=== PATIENT | female | born 2000 | race African-American/Black ===

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

== ENCOUNTER 2019-01-03 11:56 | Emergency (ER) | payer OTHER, BC ==
[~2019-01-03] VITALS: Ht 162.6 cm; Wt 50.0 kg
[2019-01-03 11:59] VITALS: Ht 162.6 cm; Wt 50.0 kg
[2019-01-03 12:21] LABS: APPEARANCE CLOUDY (CLEAR); BILIRUBIN NEGATIVE (NEGATIVE); COLOR YELLOW (YELLOW); GLUCOSE NEGATIVE (NEGATIVE); KETONE NEGATIVE (NEGATIVE); NITRITE NEGATIVE (NEGATIVE); PROTEIN TRACE mg/dL (NEGATIVE); SPECIFIC GRAVITY 1.025 (1.005-1.020); UROBILINOGEN NORMAL (NORMAL)
[2019-01-03 12:23] LABS: AMORPHOUS SEDIMENT <1+ /lpf (NONE SEEN); BACTERIA MODERATE /hpf (NEGATIVE); RED CELLS - URINE 0-5 /hpf (0-5); WHITE CELLS - URINE 0-5 /hpf (NEGATIVE)
[2019-01-03 12:29] LABS: BASOPHILS 0.6 % (0-2); HEMATOCRIT 36.6 % (36.0-48.0); HEMOGLOBIN 11.8 g/dL (12-16); IMMATURE GRANULOCYTES 0.2 % (0-5); LYMPHOCYTES 37.2 % (15-50); MCH 27.6 pg (26.0-34.0); MCHC 32.2 g/dL (31.0-37.0); MCV 85.5 fL (80.0-100.0); MEAN PLATELET VOLUME 10.1 fL (7.4-10.4); MONOCYTES 9.9 % (2-11); NEUTROPHILS 48.1 % (40-80); RBC 4.28 10x6/uL (4.00-5.40); RDW 14.4 % (11.5-14.5); WBC 5.2 10x3/uL (4.8-10.8)
[2019-01-03 12:31] LABS: PLATELET COUNT 340 10x3/uL (130-400)
[2019-01-03 12:44] LABS: ALKALINE PHOSPHATASE 56 U/L (46-116); ALT (SGPT) 16 U/L (10-68); BILIRUBIN - TOTAL 0.58 mg/dL (0.2-1.3); CALC OSMOLALITY 276 mosm/kg (275-300); CALCIUM 8.9 mg/dL (8.5-10.1); CARBON DIOXIDE 27.3 mmol/L (21.0-32.0); CHLORIDE - SERUM 105 mmol/L (98-107); CREATININE - SERUM 0.7 mg/dL (0.6-1.3); GLUCOSE 85 mg/dL (74-106); POTASSIUM - SERUM 3.5 mmol/L (3.5-5.1); SODIUM 140 mmol/L (136-145); UREA NITROGEN 10 mg/dL (7-18); eGFR NON AFRICAN AMERICAN > 90 mL/min (90-120)
[2019-01-03 13:07] LABS: HCG - QUANTITATIVE (MATERNAL) 6929 mIU/mL
[2019-01-03 16:58] VITALS: BP 115/68
== END 2019-01-03 16:58 | disposition home or self-care (01) ==
LOC: D.ER 11:56
PROVIDERS: Emergency Medicine
DX: O20.9 Hemorrhage in early pregnancy, unspecified (principal); Z3A.01 Less than 8 weeks gestation of pregnancy

== ENCOUNTER → 2019-01-08 11:12 | Outpatient (CLI) | payer OTHER, BC ==
[2019-01-03 11:59] VITALS: BMI 18.9
== END | disposition home or self-care (01) ==
LOC: D.US 11:12
PROVIDERS: ATTEND Student in an Organized Health Care Education/Training Program
DX: O92.29 Other disorders of breast associated with pregnancy and the puerperium (principal); N63.12 Unspecified lump in the right breast, upper inner quadrant

== ENCOUNTER 2019-06-26 09:54 | Outpatient (CLI) | payer OTHER ==
[2019-01-03 11:59] VITALS: BMI 18.9
[2019-06-26 10:47] LABS: BILIRUBIN NEGATIVE (NEGATIVE); GLUCOSE NEGATIVE (NEGATIVE); KETONE NEGATIVE (NEGATIVE); NITRITE NEGATIVE (NEGATIVE); SPECIFIC GRAVITY 1.005 (1.005-1.020); UROBILINOGEN NORMAL (NORMAL)
[2019-06-26 10:50] LABS: EPITHELIAL CELLS 0-5 /hpf (0-5); RED CELLS - URINE NONE SEEN /hpf (0-5); WHITE CELLS - URINE 0-5 /hpf (NEGATIVE)
[2019-06-26 10:51] LABS: BACTERIA MODERATE /hpf (NEGATIVE)
[2019-06-26 10:54] LABS: UDS - AMPHET NEGATIVE QUAL (NEGATIVE); UDS - BARB NEGATIVE QUAL (NEGATIVE); UDS - BENZO NEGATIVE QUAL (NEGATIVE); UDS - COCAINE NEGATIVE QUAL (NEGATIVE); UDS - OPIATE NEGATIVE QUAL (NEGATIVE); UDS - PCP NEGATIVE QUAL (NEGATIVE); UDS - THC NEGATIVE QUAL (NEGATIVE)
== END 2019-06-26 20:05 | disposition left against medical advice (07) ==
LOC: D.LDO 09:54
PROVIDERS: ATTEND Student in an Organized Health Care Education/Training Program
DX: O36.0191 Maternal care for anti-D [Rh] antibodies, unspecified trimester, fetus 1 (principal)

== ENCOUNTER 2019-06-27 16:32 | Outpatient (CLI) | payer SELFPAY ==
[2019-01-03 11:59] VITALS: BMI 18.9
== END 2019-06-27 17:50 | disposition home or self-care (01) ==
LOC: D.LDO 16:32
PROVIDERS: ATTEND Student in an Organized Health Care Education/Training Program
DX: O26.899 Other specified pregnancy related conditions, unspecified trimester (principal); R10.30 Lower abdominal pain, unspecified

== ENCOUNTER 2019-07-23 18:35 | Outpatient (CLI) | payer SELFPAY ==
[2019-01-03 11:59] VITALS: BMI 18.9
[2019-07-23 19:32] LABS: BILIRUBIN NEGATIVE (NEGATIVE); GLUCOSE NEGATIVE (NEGATIVE); KETONE NEGATIVE (NEGATIVE); NITRITE NEGATIVE (NEGATIVE); SPECIFIC GRAVITY 1.015 (1.005-1.020); UROBILINOGEN NORMAL (NORMAL)
== END 2019-07-23 21:05 | disposition home or self-care (01) ==
LOC: D.LDO 18:35
PROVIDERS: ATTEND Obstetrics & Gynecology
DX: O21.9 Vomiting of pregnancy, unspecified (principal); Z3A.00 Weeks of gestation of pregnancy not specified; R10.31 Right lower quadrant pain

== ENCOUNTER 2019-08-14 17:01 | Outpatient (CLI) | payer SELFPAY ==
[2019-01-03 11:59] VITALS: BMI 18.9
[2019-08-14 19:00] LABS: BILIRUBIN NEGATIVE (NEGATIVE); GLUCOSE NEGATIVE (NEGATIVE); KETONE NEGATIVE (NEGATIVE); NITRITE NEGATIVE (NEGATIVE); SPECIFIC GRAVITY 1.005 (1.005-1.020); UROBILINOGEN NORMAL (NORMAL)
== END 2019-08-14 21:09 | disposition home or self-care (01) ==
LOC: D.LDO 17:01
PROVIDERS: ATTEND Obstetrics & Gynecology
DX: O26.893 Other specified pregnancy related conditions, third trimester (principal); Z3A.37 37 weeks gestation of pregnancy; M54.9 Dorsalgia, unspecified; R10.30 Lower abdominal pain, unspecified

== ENCOUNTER 2019-08-19 14:29 | Outpatient (CLI) | payer SELFPAY ==
[2019-01-03 11:59] VITALS: BMI 18.9
== END 2019-08-19 16:40 | disposition home or self-care (01) ==
LOC: D.LDO 14:29
PROVIDERS: ATTEND Student in an Organized Health Care Education/Training Program
DX: O26.899 Other specified pregnancy related conditions, unspecified trimester (principal); N85.8 Other specified noninflammatory disorders of uterus; Z3A.00 Weeks of gestation of pregnancy not specified

== ENCOUNTER 2019-08-26 15:13 | Outpatient (CLI) | payer SELFPAY ==
[2019-01-03 11:59] VITALS: BMI 18.9
== END 2019-08-26 17:26 | disposition home or self-care (01) ==
LOC: D.LDO 15:13
PROVIDERS: ATTEND Student in an Organized Health Care Education/Training Program
DX: O36.8130 Decreased fetal movements, third trimester, not applicable or unspecified (principal); Z3A.39 39 weeks gestation of pregnancy; R03.0 Elevated blood-pressure reading, without diagnosis of hypertension

== ENCOUNTER 2019-08-30 11:24 | Inpatient (IN) | payer OTHER ==
[~2019-08-30] VITALS: Ht 162.6 cm; Wt 63.5 kg
--- NOTE | 2019-08-30 14:52 | MORECARE ---
CASE MANAGEMENT DISCHARGE SUMMARY PATIENT: DAYLIN GRANADO UNIT: [id number] ADM DATE: 08/30/19 AGE: 19 : 98 SEX: F ROOM/BED: D.1277 AUTHOR: KERRY CERON PHYSICIAN: REFERRING PHYSICIAN: LUCIA TINSLEY DO DATE OF SERVICE: 08/30/19 Discharge Plan Patient Name: DAYLIN GRANADO Facility: [facility]:[place] : 2000 Planned Disposition: Home Anticipated Discharge Date: Discharge Date: Expected LOS: Initial Reviewer: [email or web address] Initial Review Date: 08/30/2019 Generated: 08/30/19 3:52 pm Patient Name: DAYLIN GRANADO Page 12589 at 1452 All edits/amendments must be made on the electronic document DICTATION DATE: 08/30/191451 AUTOMOTIVE TECHNICIAN INSTRUCTOR: QUIRINO 08/30/19 1452 RPT#: [id number] DC DATE: STATUS: ADM IN [facility] [address] [place] [address] END OF REPORT
[2019-08-30 15:09] VITALS: BP 134/79; Ht 162.6 cm; Wt 63.5 kg
[2019-08-30 15:09] LABS: HEMATOCRIT 35.2 % (36.0-48.0); HEMOGLOBIN 10.4 g/dL (12-16); MCHC 29.5 g/dL (31.0-37.0); MCV 74.6 fL (80.0-100.0); MEAN PLATELET VOLUME 9.2 fL (7.4-10.4); RBC 4.72 10x6/uL (4.00-5.40); WBC 7.9 10x3/uL (4.8-10.8)
--- NOTE | 2019-08-30 23:38 | NUR ---
PT TRANSFERRED TO 1278.
--- NOTE | 2019-08-31 01:35 | NUR ---
PT AMBULATING IN HALLWAY AT THIS TIME.
--- NOTE | 2019-08-31 01:48 | NUR ---
PT REPORT PAIN NOW 3/10 AFTER AMBULATING IN HALLWAY
--- NOTE | 2019-08-31 01:54 | NUR ---
RN TO PT BEDSIDE, PT REQUESTS TO TAKE A SHOWER AT THIS TIME. RN PROVIDED PT WITH ESSENTIALS FOR A SHOWER.
[2019-08-31 04:54] VITALS: BP 117/80
--- NOTE | 2019-08-31 04:54 | NUR ---
RN TO PT BEDSIDE FOR ROUNDING, PT STATES PAIN IS 7/10 GENERALIZED PAIN, FUNDUS FIRM, MIDLINE, 2 BELOW, SMALL RUBRA LOCHIA NOTED, NO CLOTS. PT STATES ALL NEEDS AT THIS TIME HAVE BEEN MET, BED IN LOWEST POSITION, CALL LIGHT IN REACH, SIDE RAILS UPX2, NON-SKID SOCKS ON.
[2019-08-31 07:13] LABS: RAPID PLASMA REAGIN Non Reactive (Non Reactive)
--- NOTE | 2019-08-31 08:00 | NUR ---
AM ASSESSMENT COMPLETED CHARTED ON FLOWSHEET. FUNDUS FIRM AT U/1 AND PT DENIES CLOTS WITH VOIDS. RATES PAIN AT 3/10 AND UNDERSTANDS THAT PAIN MED IS AVAILABLE WHEN NEEDED SHE JUST NEEDS TO CALL NURSE. SALINE LOCK TO RIGHT HAND PATENT AND FLUSHED EASILY WITH 5ML NS, PT QUESTIONS IF THIS CAN BE REMOVED, ATTEMPT TO CHECK AM LABS BUT NONE ORDERED FOR THIS AM. ORDERED FOR CBC PLACED AND LAB NOTIFIED FOR BLOOD DRAW. EXPLAINED TO PT THAT WOULD NEED TO WAIT FOR THESE RESULTS BEFORE SALINE LOCK COULD BE REMOVED. SIDE RAILS UP X 2 WITH CALL LIGHT IN REACH.
--- NOTE | 2019-08-31 09:45 | NUR ---
PAIN MED FOR PAIN THAT SHE RATES AT 7/10, SEE EMAR. PT ENCOURAGED TO TRY AND GET UP FROM BED MORE FREQUENTLY AND TRY TO VOID EVERY 2-3 HOURS. IN CRIB AT BEDSIDE, SIDE RAILS UP X 2 WITH CALL LIGHT IN REACH.
--- NOTE | 2019-08-31 10:30 | NUR ---
Rates pain at 3/10 and denies needs at this time.
[2019-08-31 11:18] LABS: BASOPHILS 0.3 % (0-2); EOSINOPHILS 1.1 % (0-7); HEMATOCRIT 29.7 % (36.0-48.0); HEMOGLOBIN 8.9 g/dL (12-16); IMMATURE GRANULOCYTES 0.3 % (0-5); LYMPHOCYTES 15.3 % (15-50); MCH 21.8 pg (26.0-34.0); MEAN PLATELET VOLUME 9.5 fL (7.4-10.4); MONOCYTES 6.1 % (2-11); NEUTROPHILS 76.9 % (40-80); PLATELET COUNT 283 10x3/uL (130-400); RBC 4.09 10x6/uL (4.00-5.40); RDW 14.9 % (11.5-14.5)
[2019-08-31 11:19] LABS: MCV 72.6 fL (80.0-100.0)
--- NOTE | 2019-08-31 12:12 | NUR ---
large ice water as requested by patient, in crib at bedside. side rails up x 2 with call light in reach.
--- NOTE | 2019-08-31 14:19 | NUR ---
bonding with infant, rates pain at 3/10. denies needs at this time.
--- NOTE | 2019-08-31 16:30 | NUR ---
INFANT TAKEN TO NURSERY VIA CRIB PER PT REQUEST. PT THEN AMB 0FF UNIT TO PASS WORKER TO GLASS SANDER BELT FOOD SHE HAD CALLED IN.
--- NOTE | 2019-08-31 17:00 | NUR ---
RATES PAIN AT 3/10 BUT DENIES NEED FOR PAIN MED AT THIS TIME. CALL LIGHT IN REACH.
--- NOTE | 2019-08-31 18:15 | NUR ---
CONTINUE TO DENY NEEDS. RATES PAIN AT 3/10, INFANT IN CRIB AT BEDSIDE, SIDE RAILS UP X 2 WITH CALL LIGHT IN REACH.
[2019-08-31 19:50] VITALS: BP 127/88
--- NOTE | 2019-08-31 19:50 | NUR ---
RN TO PT BEDSIDE FOR ROUNDING. PT STATES PAIN IS 3/10 TO ABDOMEN, FUNDUS IS FIRM, MIDLINE, 2 BELOW, SMALL BLEEDING TO PERIPAD NO CLOTS NOTED. PT STATES AT THIS TIME ALL HER NEEDS HAVE BEEN MET. BABY IS IN NURSERY AT THIS TIME. BED IN LOWEST POSITION, CALL LIGHT IN REACH, SIDE RAILS UPX2
--- NOTE | 2019-08-31 23:38 | NUR ---
ROUNDING. PT SLEEPING AT THIS TIME.
--- NOTE | 2019-09-01 02:19 | NUR ---
RN TO PT BEDSIDE FOR ROUNDING. PT CURRENTLY SLEEPING. NO NEEDS AT THIS TIME.
[2019-09-01 04:05] VITALS: BP 148/99
--- NOTE | 2019-09-01 04:10 | NUR ---
RN TO PT BEDSIDE FOR ROUNDING. PT ADMINISTERED VALTREX PO AND MOTRIN 600MG PO PER PT REQUEST AT THIS TIME. PT STATES PAIN IS 8/10 TO LEFT SIDE AND THAT IT IS JUST GENERALIZED PAIN. FUNDUS IS FIRM, MIDLINE, 2 BELOW, SCANT RUBRA LOCHIA NO CLOTS NOTED. BED IN LOWEST POSITION, CALL LIGHT IN REACH, SIDE RAILS UPX2.
--- NOTE | 2019-09-01 07:30 | NUR ---
AM ASSESSMENT COMPLETED. PT DENIES HEAVY BLEEDING OR PASSING CLOTS. PT IS LYING IN BED, WITH HOB AT 30 DEGREES. PT DENIES SOB, NAUSEA, OR DIFFICULTY BREATHING. PT HAS REGULAR BREAKFAST TRAY ON HER BEDSIDE TABLE. PT DENIES OTHER NEEDS.
[2019-09-01 07:37] VITALS: BP 132/91
--- NOTE | 2019-09-01 07:45 | NUR ---
DR. ALMANZA ON UNIT, TO PT'S ROOM, SPEAKING WITH PT. TO DESK, VERBAL ORDER RECEIVED TO ROOM PT IN THIS EVENING.
--- NOTE | 2019-09-01 09:54 | NUR ---
TO PT'S ROOM FOR ROOM CHECK, PT IS TENDING TO , CHANGING 'S DIAPER. PT REQUESTS PAIN MEDICATION FOR "SHARP PAINS IN MY BACK", REQUESTS NORCO AND NOT IBUPROFEN. SEE EMAR FOR ALL MEDS ADM BY THIS RN. PT SERVED LARGE GLASS OF ICE WATER. SR UP X2, CALL LIGHT AND PHONE WITHIN REACH.
--- NOTE | 2019-09-01 11:00 | NUR ---
THIS RN TO ROOM FOR PT CHECK. PT RESTING IN BED ON LEFT SIDE, RESP EVEN AND UNLABORED. SRUx2, CL IN REACH. INFANT RESTING IN BASSINETTE AT BEDSIDE, SWADDLED WITH HAT ON.
--- NOTE | 2019-09-01 12:46 | NUR ---
THIS RN TO ROOM FOR PT CHECK. PT SITING UP IN BED, TALKING ON PHONE. PT RATES PAIN APPROX 7 WITH CRAMPING, REQUESTING MOTRIN. PT STATES THE NORCO HELPED FOR A WHILE BUT NOW SHE IS CRAMPING MORE. MOTRIN ADMIN ORDERED, SEE EMAR FOR DOC. PT PROVIDED WITH CUP OF ICE AND FRESH ICE WATER. PT DENIES FURTHER NEEDS. MED TIMES AVAILABLE UPDATED ON WHITE BOARD AND PT INSTRUCTED TO CALL IF SHE NEEDS PAIN MED AT NEXT AVAILABLE TIMES. UNDERSTANDING VERBALIZED. SRUx2, CL IN REACH. WILL CONT TO MONITOR.
[2019-09-01 15:27] VITALS: BP 135/87
--- NOTE | 2019-09-01 15:29 | NUR ---
THIS RN TO ROOM FOR PT CHECK, VS, AND VALTREX ADMIN. PT ALSO REQUESTING NORCO FOR PAIN RATED 7/10. MEDS ADMIN ORDERED, SEE EMAR FOR DOC. PT ALSO PROVIDED WITH PADS AND PANTIES PER REQUEST. VSS, PT C/O HEADACHE THAT IS POSITIONAL, WORSE WHEN UPRIGHT. PT STATES DR TINSLEY TOLD HER IF PERSISTED THAT SHE NEEDED TO ASK TO SPEAK WITH ANESTHESIA TO R/O SPINAL HEADACHE. WILL NOTIFY ANESTHESIA. PT DENIES FURTHER NEEDS, SRUx2, CL IN REACH. IN BASSINETTE AT BEDSIDE.
--- NOTE | 2019-09-01 15:35 | NUR ---
ANESTHESIA PAGED TO SEE PT
--- NOTE | 2019-09-01 16:06 | NUR ---
DR BILLY CALLS BACK AND STATES HE WILL COME SEE PT TO EVAL HEADACHE.
--- NOTE | 2019-09-01 16:12 | NUR ---
DR BILLY TO ROOM AT THIS TIME TO SEE PT.
--- NOTE | 2019-09-01 16:40 | NUR ---
PT BACK TO ROOM FROM AMBULATING OUT TO VENDING MACHINES, IN NURSERY. PT TALKING ON PHONE WITH FAMILY MEMBER, ADMIN ULTRAM ORDERED BY DR BILLY. PT INFORMED HE ALSO ENCOURAGED CAFFEINE TO HELP WITH RABAGO, IS AGREEABLE TO [place] ROBERTO, INFORMED CAFETERIA WILL BRING SHORTLY. WILL RETURN TO REASSESS RABAGO. SRUx2, CL IN REACH. FRESH ICE WATER GIVEN.
--- NOTE | 2019-09-01 17:40 | NUR ---
PT IN SHOWER AT THIS TIME.
--- NOTE | 2019-09-01 17:42 | MORECARE ---
CASE MANAGEMENT DISCHARGE SUMMARY PATIENT: DAYLIN GRANADO UNIT: [id number] ADM DATE: 08/30/19 AGE: 19 : 98 SEX: F ROOM/BED: D.1274 AUTHOR: KERRY CERON PHYSICIAN: REFERRING PHYSICIAN: LUCIA TINSLEY DO DATE OF SERVICE: 09/01/19 Discharge Plan Patient Name: DAYLIN GRANADO Facility: [facility]:[place] : 2000 Planned Disposition: Home Anticipated Discharge Date: Discharge Date: Expected LOS: Initial Reviewer: [email or web address] Initial Review Date: 08/30/2019 Generated: 09/01/19 6:42 pm Last DP export: 08/30/19 1:52 pm Patient Name: DAYLIN GRANADO Page [id number] at 1742 All edits/amendments must be made on the electronic document DICTATION DATE: 09/01/191741 RESTAURANT RECRUITER: QUIRINO 09/01/191741 RPT#: [id number] DC DATE: STATUS: ADM IN [facility] [address] [place] [address] END OF REPORT
--- NOTE | 2019-09-01 18:08 | NUR ---
PT SITTING UP IN BED. STATES NARCISA SHOWER WELL. STATES BACK PAIN RELIEVED BY SHOWER AND HEADACHE IS BETTER.
--- NOTE | 2019-09-01 19:00 | NUR ---
REPORT TO PM SHIFT.
[2019-09-01 19:35] VITALS: BP 136/83
--- NOTE | 2019-09-01 19:48 | NUR ---
PT TRANSFERRED TO 1211
--- NOTE | 2019-09-01 20:37 | NUR ---
PT PROVIDED WITH D/C INSTRUCTIONS, PT VERBALIZES UNDERSTANDING. PT WILL ROOM IN AT THIS TIME DUE TO FEEDING STATUS.
[2019-09-01] MEDS ORDERED: HYDROCODON-ACE1 EAC7 PO (20:40)
[2019-09-01] MEDS ORDERED: IBUPROFEN600 MG PO (20:41)
--- NOTE | 2019-09-02 07:46 | MORECARE ---
CASE MANAGEMENT DISCHARGE SUMMARY PATIENT: DAYLIN GRANADO UNIT: [id number] ADM DATE: 08/30/19 AGE: 19 : 98 SEX: F ROOM/BED: D.1217 AUTHOR: KERRY CERON PHYSICIAN: REFERRING PHYSICIAN: LUCIA TINSLEY DO DATE OF SERVICE: 09/02/19 Discharge Plan Patient Name: DAYLIN GRANADO [facility] [facility] 2000 Planned Disposition: Home Anticipated Discharge Date: Discharge Date: 09/01/2019 Expected LOS: Initial Reviewer: [email or web address] Initial Review Date: 08/30/2019 Generated: 09/02/19 8:46 am Last DP export: 09/01/19 4:42 pm Patient Name: DAYLIN GRANADO Page [id number] at 0746 All edits/amendments must be made on the electronic document DICTATION DATE: 09/02/19745 FINISHING RANGE OPERATOR: DM 09/02/1948 RPT#: [id number] DC DATE:09/01/19 STATUS: DIS IN [facility] [address] [place] [address] END OF REPORT
== END 2019-09-01 20:37 | disposition home or self-care (01) | DRG 807 ==
LOC: D.LDO 11:24 → D.LD 14:18 → D.WS 09-01 19:50
PROVIDERS: ADMIT Student in an Organized Health Care Education/Training Program; ATTEND Student in an Organized Health Care Education/Training Program
PROC: 10E0XZZ Delivery of Products of Conception, External Approach (ICD-10-PCS; principal; 2019-08-30)
DX: O99.824 Streptococcus B carrier state complicating childbirth (principal); Z37.0 Single live birth; Z3A.40 40 weeks gestation of pregnancy; O89.4 Spinal and epidural anesthesia-induced headache during the puerperium

== ENCOUNTER 2020-05-24 23:17 | Emergency (ER) | payer OTHER ==
[~2020-05-24] VITALS: Ht 162.6 cm; Wt 50.0 kg
[~2020-05-24 23:17] MED LIST: HYDROCODON-ACE1 EAC7 PO; IBUPROFEN600 MG PO
[2020-05-24 23:33] VITALS: Ht 162.6 cm; Wt 50.0 kg
[2020-05-24 23:56] LABS: HCG URINE POSITIVE (NEGATIVE)
[2020-05-24 23:59] LABS: HEMOGLOBIN 12.5 g/dL (12-16); MCH 27.7 pg (26.0-34.0); MCHC 32.9 g/dL (31.0-37.0); MCV 84.3 fL (80.0-100.0); MEAN PLATELET VOLUME 9.9 fL (7.4-10.4); NEUTROPHILS 59.9 % (40-80); PLATELET COUNT 278 10x3/uL (130-400); RBC 4.51 10x6/uL (4.00-5.40); RDW 15.4 % (11.5-14.5); WBC 6.5 10x3/uL (4.8-10.8)
[2020-05-25 00:03] LABS: BILIRUBIN NEGATIVE (NEGATIVE); KETONE NEGATIVE (NEGATIVE); NITRITE NEGATIVE (NEGATIVE); UROBILINOGEN NORMAL mg/dL (< 2)
[2020-05-25 00:05] LABS: WHITE CELLS - URINE 0-5 HPF (0-4)
[2020-05-25 00:06] LABS: AMORPHOUS SEDIMENT <1+ LPF (NONE SEEN); BACTERIA FEW HPF (NONE SEEN); SQUAMOUS EPITHELIAL 0-5 HPF (0-4)
[2020-05-25 00:10] LABS: CALC OSMOLALITY 271 mosm/kg (275-300); CARBON DIOXIDE 26.4 mmol/L (21.0-32.0); CHLORIDE - SERUM 103 mmol/L (98-107); CREATININE - SERUM 0.6 mg/dL (0.6-1.3); GLUCOSE 78 mg/dL (74-106); POTASSIUM - SERUM 3.5 mmol/L (3.5-5.1); SODIUM 137 mmol/L (136-145); UREA NITROGEN 9 mg/dL (7-18); eGFR NON AFRICAN AMERICAN > 90 mL/min (90-120)
[2020-05-25 00:32] LABS: ALBUMIN 4.1 g/dL (3.4-5.0); ALKALINE PHOSPHATASE 52 U/L (30-120); ALT (SGPT) 13 U/L (10-68); BILIRUBIN - TOTAL 0.35 mg/dL (0.2-1.3); C-REACTIVE PROTEIN < 0.2 mg/dL (0.0-0.9); HCG - QUANTITATIVE (MATERNAL) 284853 mIU/mL; LIPASE 198 U/L (73-393); PROTEIN - SERUM 8.2 g/dL (6.4-8.2)
[2020-05-25] MEDS ORDERED: ZOFRAN ODT4 MG/UDTAB PO (01:04)
[2020-05-25 01:31] VITALS: BP 102/64
== END 2020-05-25 01:31 | disposition home or self-care (01) ==
LOC: D.ER 23:17
PROVIDERS: Family Medicine
DX: O26.899 Other specified pregnancy related conditions, unspecified trimester (principal); R11.2 Nausea with vomiting, unspecified; Z3A.00 Weeks of gestation of pregnancy not specified

== ENCOUNTER 2020-07-29 13:06 | Emergency (ER) | payer OTHER ==
[~2020-07-29] VITALS: Ht 162.6 cm; Wt 50.0 kg
[~2020-07-29 13:06] MED LIST changes: +ZOFRAN ODT4 MG/UDTAB PO
[2020-07-29 13:10] VITALS: BP 107/70; Ht 162.6 cm; Wt 50.0 kg
[2020-07-29 13:36] LABS: BILIRUBIN NEGATIVE (NEGATIVE); KETONE NEGATIVE (NEGATIVE); NITRITE NEGATIVE (NEGATIVE); UROBILINOGEN NORMAL mg/dL (< 2)
[2020-07-29 13:38] LABS: BACTERIA MODERATE HPF (NONE SEEN); WHITE CELLS - URINE 0-5 HPF (0-4)
[2020-07-29 13:39] LABS: AMORPHOUS SEDIMENT >1+ LPF (NONE SEEN); HCG URINE POSITIVE (NEGATIVE)
[2020-07-29 13:48] LABS: BASOPHILS 0.1 % (0-2); EOSINOPHILS 5.3 % (0-7); HEMATOCRIT 33.1 % (36.0-48.0); HEMOGLOBIN 10.8 g/dL (12-16); IMMATURE GRANULOCYTES 0.1 % (0-5); LYMPHOCYTE ABS# 1.48 10x3/uL (1.18-3.74); MCH 27.7 pg (26.0-34.0); MCHC 32.6 g/dL (31.0-37.0); MCV 84.9 fL (80.0-100.0); MONOCYTES 8.4 % (2-11); NEUTROPHILS 66.1 % (40-80); PLATELET COUNT 298 10x3/uL (130-400); RDW 13.3 % (11.5-14.5); WBC 7.4 10x3/uL (4.8-10.8)
[2020-07-29 13:58] LABS: CALC OSMOLALITY 271 mosm/kg (275-300); CALCIUM 8.9 mg/dL (8.5-10.1); CARBON DIOXIDE 24.7 mmol/L (21.0-32.0); CHLORIDE - SERUM 103 mmol/L (98-107); CREATININE - SERUM 0.5 mg/dL (0.6-1.3); GLUCOSE 73 mg/dL (74-106); POTASSIUM - SERUM 3.8 mmol/L (3.5-5.1); SODIUM 137 mmol/L (136-145); UREA NITROGEN 10 mg/dL (7-18); eGFR NON AFRICAN AMERICAN > 90 mL/min (90-120)
[2020-07-29 14:45] LABS: ALBUMIN 3.2 g/dL (3.4-5.0); ALKALINE PHOSPHATASE 51 U/L (30-120); ALT (SGPT) 13 U/L (10-68); AMYLASE - SERUM 52 U/L (25-115); HCG - QUANTITATIVE (MATERNAL) 55434 mIU/mL; LIPASE 117 U/L (73-393); PROTEIN - SERUM 7.4 g/dL (6.4-8.2); TROPONIN-I < 0.017 ng/mL (0.000-0.060)
[2020-07-29] MEDS ORDERED: ZOFRAN4 MG PO (16:28)
== END 2020-07-29 17:29 | disposition home or self-care (01) ==
LOC: D.ER 13:06
PROVIDERS: Family Medicine
DX: O26.892 Other specified pregnancy related conditions, second trimester (principal); Z3A.16 16 weeks gestation of pregnancy; R10.9 Unspecified abdominal pain; R11.10 Vomiting, unspecified

== ENCOUNTER 2020-08-17 07:42 | Emergency (ER) | payer OTHER, MEDICAID ==
[~2020-08-17] VITALS: Ht 165.1 cm; Wt 52.3 kg
[~2020-08-17 07:42] MED LIST changes: +ZOFRAN4 MG PO
[2020-08-17 07:49] VITALS: BP 102/61; Ht 165.1 cm; Wt 52.3 kg
[2020-08-17 08:08] LABS: BASOPHILS 0.6 % (0-2); EOSINOPHILS 8.7 % (0-7); HEMATOCRIT 30.1 % (36.0-48.0); HEMOGLOBIN 9.9 g/dL (12-16); MCH 27.2 pg (26.0-34.0); MCV 82.4 fL (80.0-100.0); MONOCYTES 8.2 % (2-11); NEUTROPHILS 53.5 % (40-80); PLATELET COUNT 319 10x3/uL (130-400); RBC 3.65 10x6/uL (4.00-5.40); RDW 13.8 % (11.5-14.5); WBC 6.6 10x3/uL (4.8-10.8)
[2020-08-17 08:15] LABS: CALC OSMOLALITY 273 mosm/kg (275-300); CALCIUM 8.7 mg/dL (8.5-10.1); CARBON DIOXIDE 24.9 mmol/L (21.0-32.0); CHLORIDE - SERUM 104 mmol/L (98-107); CREATININE - SERUM 0.5 mg/dL (0.6-1.3); GLUCOSE 88 mg/dL (74-106); POTASSIUM - SERUM 3.6 mmol/L (3.5-5.1); SODIUM 138 mmol/L (136-145); UREA NITROGEN 9 mg/dL (7-18); eGFR NON AFRICAN AMERICAN > 90 mL/min (90-120)
[2020-08-17 08:20] LABS: BILIRUBIN NEGATIVE (NEGATIVE); KETONE NEGATIVE (NEGATIVE); NITRITE NEGATIVE (NEGATIVE); UROBILINOGEN NORMAL mg/dL (< 2)
[2020-08-17 08:22] LABS: WHITE CELLS - URINE 2 HPF (0-4)
[2020-08-17 08:23] LABS: BACTERIA FEW HPF (NONE SEEN); SQUAMOUS EPITHELIAL 0-5 HPF (0-4)
[2020-08-17 08:24] LABS: AMORPHOUS SEDIMENT <1+ LPF (NONE SEEN)
[2020-08-17 08:43] LABS: ALKALINE PHOSPHATASE 51 U/L (30-120); ALT (SGPT) 16 U/L (10-68); AMYLASE - SERUM 56 U/L (25-115); BILIRUBIN - TOTAL 0.22 mg/dL (0.2-1.3); HCG - QUANTITATIVE (MATERNAL) 52899 mIU/mL; LIPASE 138 U/L (73-393); PROTEIN - SERUM 6.7 g/dL (6.4-8.2)
[2020-08-17 08:44] LABS: TROPONIN-I < 0.017 ng/mL (0.000-0.060)
== END 2020-08-17 09:53 | disposition home or self-care (01) ==
LOC: D.ER 07:42
PROVIDERS: Emergency Medicine
DX: O28.9 Unspecified abnormal findings on antenatal screening of mother (principal); R10.2 Pelvic and perineal pain; Z3A.19 19 weeks gestation of pregnancy